=== PATIENT | female | born 1985 | race Caucasian/White ===

== ENCOUNTER 2018-05-21 20:52 | Inpatient (IN) | payer MEDICAID, OTHER, SELFPAY ==
[2018-05-21] MEDS ORDERED: Lidocaine 1% (PF) 30 ML VIAL SC PRN (22:31)
[2018-05-21] MEDS ORDERED: Butorphanol Tartrate 1 MG/ML VIAL SLOW IVP PRN (22:31)
[2018-05-21] MEDS ORDERED: NS / Oxytocin 40 units/1000ml 1,000 ML IV PRN (22:31)
[2018-05-21] MEDS ORDERED: Promethazine HCl 25 MG/ML VIAL IM PRN (22:31)
[2018-05-21] MEDS ORDERED: Ondansetron PF 4 MG/2 ML Vial IVP PRN (22:31)
--- NOTE | 2018-05-21 22:39 | PDOC.LDHP ---
Labor and Delivery H&P Chief complaint: scheduled induction HPI: 33 yo at 38 weeks here for medically indicated IOL due to uncontrolled GDMA2. Currently takes metformin with measured home glucoses of 105 (fasting), 125 (PP). Denies VB/VD/LOF/CTX, endorses FM. Denies CAGE, vision changes, numbness and tingling. Current gestational age (weeks): 38 Due date: 06/04/18 Grav: 7 Para: 3 OB History Details: 3 term SVDs Current complications: none, gestational diabetes Abnormal US findings: Yes (Inc risk for down's syndrome on Quad screen) Past Medical History: denies - Physical Exam Vital signs reviewed and normal: yes General: NAD, resting Heart: RRR Lungs: nonlabored breathing Abdomen: gravid Extremeties: trace edema FHT: category 1 (150/mod/accels) - Vaginal Exam cm dilated: 2 Effacement: 50% Station: -3 - OB Labs Blood type: O RH: positive Antibody Screen: negative HIV: negative RPR: negative HEPSAg: negative 1 hour GCT: positive (243) GBS: negative Urine drug screen: not done Rubella: immune - Assessment L&D Assessment: medically indicated induction - Plan -: 33 yo at 38 weeks here for medically indicated IOL due to uncontrolled GDMA2 1. sIUP in multigravida -FHT: CAT I, uterine irritability -SVE: 2/50/-3, Villalta 4 -will proceed with cytotec 50mcg x1, check in 4 hours or otherwise indicated -will start pit when cervix favorable -does not desire epidural, has stadol for pain cntrl 2. GDMA2, uncontrolled -Accuchecks q2hr can space out if nml 3. AMA discussed w/ dr. rose <Magdalena Morley - Last Filed: 05/21/18 23:14> <Shannon Rose - Last Filed: 05/22/18 09:59> Allergies/Adverse Reactions: Allergies Allergy/AdvReac Type Severity Reaction Status Date / Time No Known Allergies Allergy Verified 05/21/18 22:30 Attending Addendum - Attending Addendum Date/Time: 05/22/18 0946 I personally evaluated the patient and discussed the management with Dr. Morley I agree with the History, Examination, Assessment and Plan documented above with any addition or exceptions noted below. 33 yo at 38w dated by LMP consistent with 17w1d US presenting for scheduled induction of labor for poorly controlled A2GDM. complicated also by positive quad screen and AMA 1. Medical induction of labor for A2GDM, positive quad screen with elevated T21 risk and elevated Inhibin A -Cervix unfavorable. Start IOL with cytotec. -Change to pitocin once villalta score is >6 -GBS negative -Pt does not desire epidural -Cephalic presentation confirmed by bedside US -Tracing reassuring 2. Poorly controlled A2GDM -On metformin BID -Pt unable to tell us what sugars run at home -Per pt the baby was large but the most recent US we have in her record (04/11, 31w6d) shows EFW of 38%tile -Check sugars q2hrs and can space out if they remain at goal 3. Positive quad screen/AMA -Increased risk for trisomy 21 (1 in 74) -No soft markers on US -Pt declined amnio and NIPT 4. Elevated Inhibin A -Increased risk of preeclampsia, loss -Will monitor BP closely and check labs if indicated 5.Recurrent miscarriage -Pt declined APS labs Anticipate <Shannon Rose - Last Filed: 05/22/18 09:59>
[2018-05-21 22:45] LABS: Mean Corpuscular HGB CONC 33.6 g/dL (32.0-36.0); Mean Corpuscular Hemoglobin 27.6 pg (27.0-31.0); Mean Corpuscular Volume 82.1 fL (78.0-98.0); Mean Platelet Volume 11.2 fL (7.4-10.4); Platelet Count 246 thou/uL (130-400); RBC Distribution Width 13.3 % (11.5-14.5); Red Blood Cell (RBC) Count 4.71 mill/uL (4.20-5.40); White Blood Cell (WBC) Count 8.2 thou/uL (4.8-10.8)
[2018-05-21] MEDS ORDERED: Misoprostol 100 MCG TAB VAG SCH (22:45)
[2018-05-21] MEDS: NS w/ Oxytocin 10 units 500 ML IV SCH (22:55)
[2018-05-21] MEDS: Lactated Ringer's 1,000 ML IV SCH (22:55)
[2018-05-21 23:08] VITALS: BMI 36.8
[2018-05-21 23:11] LABS: Syphilis Antibody Nonreactive (Nonreactive); Syphilis Antibody Index 0.04 S/CO (<1.00 Non-Reactive)
[2018-05-22 00:16] LABS: HBSAg Index 0.21 S/CO (0-0.99); Hep B Surf Ag Non-Reactive S/CO (NonReactive)
--- NOTE | 2018-05-22 02:14 | PDOC.LDPN ---
Labor & Delivery Progress Note - Subjective Subjective: comfortable - Objective Abnormal vital signs: yes, see note General: NAD, resting Uterine fundus: non tender SVE: 3/60/-3 Dilation: 3 Effacement: 50% (60) Station: -3 FHT: category 1 [place] contractions every: uterine irritability Plan: continue plan of care, labor augmentation -: 33 yo at 38 weeks here for medically indicated IOL due to uncontrolled GDMA2 1. sIUP in multigravida -FHT: CAT I, uterine irritability -SVE: /60/-3, [place] 6 -Two isolated SBPs in 140s, no CAGE, CP, SOB. Rpt SBP 129. Will continue to monitor -will start pitocin, check in 2 hours -does not desire epidural, has stadol for pain cntr 2. GDMA2, uncontrolled -Accuchec 67, can hold for now 3. AMA 4. Possible LGA -reported per patient -need updated records
--- NOTE | 2018-05-22 02:41 | PDOC.EVN ---
Event Note - Event Note Event Note: At around 0220 uterine tachysysole occurred with 6 CTX in 10 minutes likely from cytotec. FHT Cat II due to minimal variability. Gave 500 cc bolus with CTX spacing out to q3min, FHT Cat I. Pitocin not started at this time.
[2018-05-22] MEDS: Lactated Ringer's 1,000 ML IV SCH ×2 (03:11→15:35)
[2018-05-22] MEDS: NS w/ Oxytocin 10 units 500 ML IV SCH (05:01)
--- NOTE | 2018-05-22 07:09 | PDOC.LDPN ---
Labor & Delivery Progress Note - Subjective Subjective: comfortable, painful contractions - Objective Vital signs reviewed and normal: yes Dilation: 4 Effacement: 50% Station: -2 FHT: category 1 Plan: continue plan of care, labor augmentation -: 33 yo at 38 weeks here for medically indicated IOL due to uncontrolled GDMA2 1. sIUP in multigravida -FHT: CAT I -SVE: 460/-2, CTX 2-3min, pit at 2 -CAGE, will give tylenol -Baby still billotable, no AROM for now -Check in 4 hours -does not desire epidural, has stadol for pain cntl 2. GDMA2, uncontrolled -Accuchec 67, space to [id number] 3. AMA 4. Possible LGA -reported per patient -need updated records <Magdalena Morley - Last Filed: 05/22/18 07:21> Attending Addendum - Attending Addendum Date/Time: 05/22/18 1003 I personally evaluated the patient and discussed the management with Dr. Morley I agree with the History, Examination, Assessment and Plan documented above with any addition or exceptions noted below. Pt had SROM this morning around 8:45 am. Check after SROM was 4/75/-1 Cat I FHT Pt has had intermittent mild range BP. Earlier had a mild headache that has resolved. Denies vision changes or RUQ pain. Will send labs at this time to evaluate for preeclampsia although i suspect the elevations due to pain. Pt requesting epidural at this time. Glucose has been WNL. Will continue checking q4h <Shannon Kingsley - Last Filed: 05/22/18 10:13>
[2018-05-22] MEDS ORDERED: Acetaminophen 325 MG TAB PO SCH (07:30)
[2018-05-22 09:23] LABS: #Eosinphils 0.4 thou/uL (0.0-0.7); #Lymphocytes 2.2 thou/uL (1.20-3.40); #Monocytes 0.7 thou/uL (0.11-0.59); %Eosinophils 4.6 % (0.0-10.0); %Lymphocytes 23.1 % (21.0-51.0); %Monocytes 7.7 % (0.0-10.0); %Neutrophils 64.5 % (42.0-75.0); Hemoglobin 12.9 g/dL (12.0-16.0); Mean Corpuscular HGB CONC 33.2 g/dL (32.0-36.0); Mean Corpuscular Hemoglobin 27.2 pg (27.0-31.0); Mean Corpuscular Volume 81.8 fL (78.0-98.0); Mean Platelet Volume 10.1 fL (7.4-10.4); Platelet Count 227 thou/uL (130-400); RBC Distribution Width 13.4 % (11.5-14.5); Red Blood Cell (RBC) Count 4.75 mill/uL (4.20-5.40); White Blood Cell (WBC) Count 9.3 thou/uL (4.8-10.8)
[2018-05-22 09:44] LABS: ALT (SGPT) 7 U/L (8-55); AST (SGOT) 13 U/L (5-34); Alkaline Phosphatase 140 U/L (40-150); Anion Gap 11 mmol/L (10-20); BUN (Urea Nitrogen) 5 mg/dL (7.0-18.7); Bilirubin, Total 0.2 mg/dL (0.2-1.2); Calc. Creatinine Clearance 215 mL/min (70-130); Calcium 8.7 mg/dL (7.8-10.44); Carbon Dioxide 21 mmol/L (22-29); Chloride 108 mmol/L (98-107); Estimated GFR-MDRD Greater than 90; Globulin 3.7 g/dL (2.4-3.5); Glucose 84 mg/dL (70-105); Potassium 3.7 mmol/L (3.5-5.1); Protein, Total 6.7 g/dL (6.0-8.3); Sodium 136 mmol/L (136-145)
--- NOTE | 2018-05-22 10:16 | PDOC.LDPN ---
Labor & Delivery Progress Note - Subjective Subjective: painful contractions, loss of fluid - Objective Vital signs reviewed and normal: yes General: breathing through contractions Dilation: 4 Effacement: 75% Station: 1+ FHT: category 1 (140/mod/+accel/no decel) [place] contractions every: 2-3 min AROM: clear fluid Plan: continue plan of care -: 33 yo at 38 weeks here for medically indicated IOL due to uncontrolled GDMA2 sIUP in multigravida -FHT: CAT I -SVE: /-1, CTX 2-3min, pitocin going - had SROM before check - patient now desires epidural GDMA2, uncontrolled -Accuchecks q4h Mildly elevated BP - systolic 140s. Could be 2/2 pain - CMP, CBC normal. - urine prot and cr pending - will continue to monitor AMA Possible LGA -reported per patient -need updated records <Myranda Gage - Last Filed: 05/22/18 10:12> Attending Addendum - Attending Addendum Date/Time: 05/22/18 1025 I personally evaluated the patient and discussed the management with Dr. Gage I agree with the History, Examination, Assessment and Plan documented above with any addition or exceptions noted below. Updated records reviewed. No documented suspected macrosomia found on review of records. Per RN pt is now 7cm and 100 %effaced. She is having recurrent variable decels with contractions. Cat II Tracing but overall reassuring. Anticipate vaginal delivery. <Shannon Kinglsey - Last Filed: 05/22/18 10:28>
[2018-05-22] MEDS ORDERED: Misoprostol 200 MCG TAB ONE (10:38)
[2018-05-22] MEDS ORDERED: Carboprost 250 MCG/ML AMP ONE (10:39)
[2018-05-22] MEDS ORDERED: Adacel (T-DAP) 0.5 ML VIAL IM ONE (10:52)
[2018-05-22] MEDS ORDERED: Benzocaine/Menthol 20-0.5% 60 ML CAN TOP PRN (10:52)
[2018-05-22] MEDS ORDERED: Bisacodyl 10 MG SUPP PR PRN (10:52)
[2018-05-22] MEDS ORDERED: Milk Of Magnesia 30 ML UDCUP PO PRN (10:52)
[2018-05-22] MEDS ORDERED: Lanolin Ointment 7 GM TUBE TOP PRN (10:52)
--- NOTE | 2018-05-22 10:54 | PDOC.OPDEL ---
OB Operative/Delivery Note Delivery Dr/Surgeon: Merari/Aramis/Sancho Pre-Delivery Diagnosis: medically indicated induction (uncontrolled GDMA2) Procedure/Post Delivery Dx: spontaneous vaginal delivery Weeks gestation: 38 (38.1) Anesthesia: none - Additional Findings/Plan Placenta delivered: spontaneous Repaired Obstetrical Laceration: none Estimated blood loss: 7 Compilations/Other Findings: Delivering Physician Merari/Aramis Attending Sancho Procedure: Spontaneous Vaginal Delivery Anesthesia: None QBL: 7 ml Pre-op Diagnosis: 1. Term intrauterine , IOL 2. GDMA2 3. AMA 4. Hx of recurrent miscarriage Post-op Diagnosis: 1. Term intrauterine , delivered 2. same as above Indications: A 33y/o female presents to L&D for induction due to GMDA2 Delivery Note: This is 33yo F @ 38.1 wks who delivered a viable F infant at 10:32. Following an uneventful antepartum course, a vigorous female was delivered over an intact perineum in the OA position. Anterior Shoulder and then remainder of the body delivered. No nuchal cord. The head was held down and mouth and nares were bulb suctioned. Cord clamped and cut and cord blood collected. Placenta delivered intact Mcdaniels presentation with a 3 vessel cord noted. Fundal massage was performed and the fundus was firm. The cervix and vagina were inspected and found to be free of lacerations.Infant went to nursery in good condition for routine care. Apgars were 8/9 at 1 & 5 minutes, respectively. Patient tolerated delivery well and went to after routine recovery/care. Post delivery plan: routine recovery <Myranda Gage - Last Filed: 05/22/18 11:05> Attending Addendum - Attending Addendum Date/Time: 05/23/18 1033 I personally evaluated the patient and discussed the management with Dr. Gage I was present for the entire uncomplicated performed by Dr. Gage Pt rapidly progressed from 7cm to complete and baby's head delivered precipitously in the DC position. <Shannon Kingsley - Last Filed: 05/23/18 10:37>
[2018-05-22] MEDS ORDERED: NS / Oxytocin 40 units/1000ml 1,000 ML IV SCH (11:00)
[2018-05-22] MEDS: Ibuprofen 800 MG TAB PO SCH ×2 (14:35→21:52)
[2018-05-22] MEDS: Ferrous Sulfate 325 MG TAB PO SCH (14:47)
[2018-05-22] MEDS: Docusate Calcium (SURFAK) 240 MG CAP PO SCH (21:52)
[2018-05-23] MEDS: Lactated Ringer's 1,000 ML IV SCH ×2 (00:21→06:26)
--- NOTE | 2018-05-23 05:55 | PDOC.PP ---
Post Progress Note Post Day #: 1 Subjective: Patient feels well. Has no questions or concerns. PO intake tolerated: yes Flatus: yes Ambulation: yes Vital Signs (12 hours) Temp Pulse Resp BP Pulse Ox 05/23/18 00:20 98.1 F 54 L 16 123/65 05/22/18 19:38 98.6 F 50 L 16 128/63 95 Weight Weight 88.451 kg - Physical Examination General: NAD Cardiovascular: no m/r/g, RRR Respiratory: clear to auscultation bilaterally, non-labored breathing Abdominal: + bowel sounds, no distention, appropriately TTP Extremities: negative homans (B) Neurological: no gross focal deficits Psychiatric: normal affect Result Diagrams: 05/22/18 09:16 05/22/18 09:16 Additional Labs: Post Labs Blood Type O POSITIVE 05/21/18 21:46 Hep Bs Antigen Non-Reactive S/CO (NonReactive) 05/21/18 21:46 (1) care and examination Code(s): Z39.2 - ENCOUNTER FOR ROUTINE FOLLOW-UP Status: Acute (2) Gestational diabetes mellitus (GDM) Code(s): O24.419 - GESTATIONAL DIABETES MELLITUS IN , UNSP CONTROL Status: Acute (3) Advanced maternal age (AMA) in Code(s): VPB4168 - Status: Acute - Assessment/Plan 33 yo now [id number] delivered via @ 1032 on 05/22. Day #1 - QBL 7mL - Bottle feeding - continue routine care - will follow up with Dr. Bailey at [facility] in 2 weeks GDMA2, uncontrolled - BG stable during labor - was on Metformin throughout - Accuchecks BG 115, 188 last check <Myranda Gage - Last Filed: 05/23/18 08:04> Vital Signs (12 hours) Temp Pulse Resp BP Pulse Ox 05/23/18 07:39 97.8 F 50 L 20 120/62 99 05/23/18 05:55 98.0 F 54 L 16 128/80 05/23/18 00:20 98.1 F 54 L 16 123/65 Weight Weight 88.451 kg Result Diagrams: 05/22/18 09:16 05/22/18 09:16 Additional Labs: Post Labs Blood Type O POSITIVE 05/21/18 21:46 Hep Bs Antigen Non-Reactive S/CO (NonReactive) 05/21/18 21:46 <Shannon Kingsley - Last Filed: 05/23/18 09:57> Attending Addendum - Attending Addendum Date/Time: 05/23/18943 I personally evaluated the patient and discussed the management with Dr. Gage I agree with the History, Examination, Assessment and Plan documented above with any addition or exceptions noted below. stable ppd #1 Lochia is mild. pt denies pain. Tolerating PO. + spontaneous urination Fundus is firm and 2cm below umbilicus. Will need GTT 6 weeks Pt requesting d/c to home today. Can d/c if baby also able to go. <Shannon Kingsley - Last Filed: 05/23/18 09:57>
[2018-05-23] MEDS: Ibuprofen 800 MG TAB PO SCH ×2 (05:59→14:45)
[2018-05-23] MEDS: Ferrous Sulfate 325 MG TAB PO SCH (07:21)
[2018-05-23] MEDS: Docusate Calcium (SURFAK) 240 MG CAP PO SCH (08:39)
[2018-05-23 11:43] VITALS: BP 124/59; TEMP 98.4
== END 2018-05-23 15:20 | disposition home or self-care (01) | DRG 807 ==
LOC: L&D 20:52 → 3SE 05-22 14:16
PROVIDERS: ADMIT Family Medicine; ATTEND Family Medicine
PROC: 10E0XZZ Delivery of Products of Conception, External Approach (ICD-10-PCS; principal; 2018-05-21)
PROC: 3E0234Z Introduction of Serum, Toxoid and Vaccine into Muscle, Percutaneous Approach (ICD-10-PCS; 2018-05-21)
DX: O24.429 Gestational diabetes mellitus in childbirth, unspecified control (principal); Z37.0 Single live birth; Z3A.38 38 weeks gestation of pregnancy; Z23 Encounter for immunization
CPT/HCPCS: 36415; 36416; 76815; 80053; 85025; 85027; 86780; 86850; 86900; 86901; 87340; J0595; J3490